=== PATIENT | male | born 1970 | race Caucasian/White ===

== ENCOUNTER 2017-10-15 18:44 | Inpatient (IN) | payer BC ==
[~2017-10-15] VITALS: Ht 182.9 cm; Wt 122.8 kg
[2017-10-15 19:43] LABS: Basophils # (auto) 0.1 uL; Basophils % (auto) 0.7 % (0.0-2.0); Eosinophils # (auto) 0 uL; Eosinophils % (auto) 0.5 % (0.0-7.0); Hematocrit 45.5 % (41.0-53.0); Hemoglobin 15.9 g/dL (13.5-17.5); Lymphocytes # (auto) 1.3 uL; Lymphocytes % (auto) 13.4 % (10.0-50.0); Mean Corpuscular Hemoglobin 32.2 pg (28.0-32.0); Mean Corpuscular Hgb Conc. 34.9 g/dL (32.0-36.0); Mean Corpuscular Volume 92.2 fL (80.0-100.0); Mean Platelet Volume 8.7 fL (6.9-10.8); Monocytes % (auto) 10.3 % (0.0-12.0); Neutrophils # (auto) 7.5 uL; Neutrophils % (auto) 75.1 % (37.0-80.0); Nucleated Red Blood Cells % 0.1 %; Platelet Count (auto) 192 10^3/uL (140-450); Red Cell Distribution Width 13.3 % (11.8-14.3); White Blood Cell 9.9 10^3/uL (4.4-10.8)
[2017-10-15 19:58] LABS: Urine Bilirubin Negative (Negative); Urine Blood Negative /uL (Negative); Urine Color Yellow (Yellow); Urine Glucose Normal (Normal); Urine Ketone TRACE (Negative); Urine Mucus FEW (None Seen); Urine Nitrite Negative (Negative); Urine RBC 1 /hpf (0 - 3); Urine Squamous Epithelial Cell FEW /hpf (<5); Urine Urobilinogen Normal (Negative); Urine pH 5.5 (5.0-8.0)
[2017-10-15 19:58] LABS: Albumin 3.8 g/dL (3.4-5.0); Magnesium 1.9 mg/dL (1.6-2.6); Potassium 3.4 mmol/L (3.5-5.1)
[2017-10-15 20:01] LABS: Total Protein 7.9 g/dL (6.4-8.2)
[2017-10-16] MEDS ORDERED: SODIUM CHLORIDE 0.9% 1,000 ML IV ONE ×3 (07:59→09:00)
[2017-10-16] MEDS ORDERED: metroNIDAZOLE 500MG/100ML 100 ML IV ONE (08:15)
[2017-10-16] MEDS ORDERED: PIPERACILLIN-TAZOB 3.375GM 50 ML IV ONE (08:15)
[2017-10-16] MEDS ORDERED: SODIUM CHLORIDE 0.9% 1,000 ML IV SCH (08:46)
[2017-10-16] MEDS ORDERED: cloNIDine HCL 0.1 MG TAB PO PRN (09:00)
[2017-10-16] MEDS ORDERED: POTASSIUM CHLORIDE 8 MEQ TAB PO ONE (09:00)
[2017-10-16] MEDS ORDERED: TEMAZEPAM 15 MG CAP PO PRN (09:00)
[2017-10-16] MEDS ORDERED: ACETAMINOPHEN 325 MG TAB PO PRN (09:00)
[2017-10-16] MEDS: HYDROcodone-ACET 5/325MG TAB PO PRN ×4 (09:31→21:19)
[2017-10-16] MEDS: MULTIPLE VITAMIN TAB PO SCH (11:05)
[2017-10-16] MEDS: FAMOTIDINE 20 MG TAB PO SCH ×2 (11:06→21:18)
[2017-10-16] MEDS: PIPERACILLIN-TAZOB 3.375GM 50 ML IV SCH ×2 (12:36→17:47)
[2017-10-16] MEDS ORDERED: METR500T PO (12:49)
[2017-10-16 13:00] VITALS: BP 182/74
[2017-10-16 13:21] VITALS: BP 182/74
[2017-10-16] MEDS: metroNIDAZOLE 500MG/100ML 100 ML IV SCH ×2 (14:20→21:18)
[2017-10-16] MEDS: SODIUM CHLORIDE 0.9% 1,000 ML IV SCH (16:12)
[2017-10-16 17:00] VITALS: BP 114/64
[2017-10-16] MEDS: ONDANSETRON HCL 4 MG/2 ML VIAL IV PRN (21:29)
[2017-10-16 22:00] VITALS: BP 107/70
[2017-10-17] MEDS: SODIUM CHLORIDE 0.9% 1,000 ML IV SCH ×3 (00:41→20:57)
[2017-10-17] MEDS: PIPERACILLIN-TAZOB 3.375GM 50 ML IV SCH ×2 (00:41→06:14)
[2017-10-17] MEDS: metroNIDAZOLE 500MG/100ML 100 ML IV SCH ×3 (04:34→20:58)
[2017-10-17] MEDS: ONDANSETRON HCL 4 MG/2 ML VIAL IV PRN ×3 (04:47→20:58)
[2017-10-17] MEDS: HYDROcodone-ACET 5/325MG TAB PO PRN ×4 (04:47→20:59)
[2017-10-17 04:53] VITALS: BP 106/59
[2017-10-17 06:11] LABS: Basophils # (auto) 0 uL; Basophils % (auto) 0.7 % (0.0-2.0); Eosinophils # (auto) 0.1 uL; Eosinophils % (auto) 1.9 % (0.0-7.0); Hematocrit 41.1 % (41.0-53.0); Hemoglobin 14.2 g/dL (13.5-17.5); Lymphocytes # (auto) 1.1 uL; Lymphocytes % (auto) 23.1 % (10.0-50.0); Mean Corpuscular Hemoglobin 32.2 pg (28.0-32.0); Mean Corpuscular Hgb Conc. 34.6 g/dL (32.0-36.0); Mean Corpuscular Volume 93.2 fL (80.0-100.0); Mean Platelet Volume 8.6 fL (6.9-10.8); Monocytes # (auto) 0.7 uL; Monocytes % (auto) 14.4 % (0.0-12.0); Neutrophils # (auto) 2.8 uL; Neutrophils % (auto) 59.9 % (37.0-80.0); Platelet Count (auto) 173 10^3/uL (140-450); Red Cell Distribution Width 13.1 % (11.8-14.3); White Blood Cell 4.7 10^3/uL (4.4-10.8)
[2017-10-17 06:36] LABS: Albumin 3.2 g/dL (3.4-5.0); BUN/Creatinine Ratio 12.1; Bilirubin, Total 0.5 mg/dL (0.2-1.0); Calcium 8.2 mg/dL (8.5-10.1); Potassium 3.4 mmol/L (3.5-5.1); Total Protein 6.4 g/dL (6.4-8.2)
[2017-10-17 09:00] VITALS: BP 114/74
[2017-10-17] MEDS: FAMOTIDINE 20 MG TAB PO SCH ×2 (11:09→20:58)
[2017-10-17] MEDS: MULTIPLE VITAMIN TAB PO SCH (11:10)
[2017-10-17] MEDS ORDERED: POTASSIUM CHL 20 Meq TABLET PO ONE (11:15)
[2017-10-17 13:07] VITALS: BP 129/44
[2017-10-17] MEDS: LEVOFLOXACIN 500MG 100 ML IV SCH (15:11)
[2017-10-17 17:00] VITALS: BP 143/91
[2017-10-17 21:44] VITALS: BP 129/68
[2017-10-18] MEDS: ONDANSETRON HCL 4 MG/2 ML VIAL IV PRN (02:20)
[2017-10-18] MEDS: HYDROcodone-ACET 5/325MG TAB PO PRN ×2 (02:20→14:18)
[2017-10-18 04:56] VITALS: BP 133/71
[2017-10-18 05:33] LABS: Basophils # (auto) 0 uL; Basophils % (auto) 0.7 % (0.0-2.0); Eosinophils # (auto) 0.1 uL; Eosinophils % (auto) 2.3 % (0.0-7.0); Hematocrit 43.1 % (41.0-53.0); Hemoglobin 14.8 g/dL (13.5-17.5); Lymphocytes # (auto) 1.2 uL; Lymphocytes % (auto) 27.9 % (10.0-50.0); Mean Corpuscular Hemoglobin 31.7 pg (28.0-32.0); Mean Corpuscular Hgb Conc. 34.2 g/dL (32.0-36.0); Mean Corpuscular Volume 92.6 fL (80.0-100.0); Mean Platelet Volume 8.9 fL (6.9-10.8); Monocytes # (auto) 0.6 uL; Monocytes % (auto) 14.8 % (0.0-12.0); Neutrophils # (auto) 2.2 uL; Neutrophils % (auto) 54.3 % (37.0-80.0); Nucleated Red Blood Cells % 0.1 %; Platelet Count (auto) 185 10^3/uL (140-450); Red Cell Distribution Width 12.8 % (11.8-14.3); White Blood Cell 4.1 10^3/uL (4.4-10.8)
[2017-10-18 05:44] LABS: Calcium 8.8 mg/dL (8.5-10.1); Potassium 3.7 mmol/L (3.5-5.1)
[2017-10-18 05:46] LABS: BUN/Creatinine Ratio 10.6
[2017-10-18] MEDS: metroNIDAZOLE 500MG/100ML 100 ML IV SCH ×2 (05:51→14:17)
[2017-10-18] MEDS: SODIUM CHLORIDE 0.9% 1,000 ML IV SCH ×2 (05:51→17:15)
[2017-10-18 09:00] VITALS: BP 128/66
[2017-10-18] MEDS: LEVOFLOXACIN 500MG 100 ML IV SCH (09:36)
[2017-10-18] MEDS: MULTIPLE VITAMIN TAB PO SCH (09:36)
[2017-10-18] MEDS: FAMOTIDINE 20 MG TAB PO SCH (09:37)
[2017-10-18 13:00] VITALS: BP 127/85
[2017-10-18] MEDS ORDERED: CIPR-173 PO (14:09)
[2017-10-18] MEDS ORDERED: METR500T PO (14:09)
[2017-10-18] MEDS ORDERED: PROM25TA5 PO (14:09)
[2017-10-18 16:25] VITALS: BP 127/85
[2017-10-18 17:00] VITALS: BP 142/96
== END 2017-10-18 20:20 | disposition home or self-care (01) | DRG 872 ==
LOC: ER 18:44 → OVERFLOW 18:45 → EAST 10-16 12:02
PROVIDERS: ADMIT Internal Medicine; ATTEND Internal Medicine
DX: A41.9 Sepsis, unspecified organism (principal); K76.0 Fatty (change of) liver, not elsewhere classified; E66.01 Morbid (severe) obesity due to excess calories; K57.32 Diverticulitis of large intestine without perforation or abscess without bleeding; E87.6 Hypokalemia; F17.200 Nicotine dependence, unspecified, uncomplicated; I12.9 Hypertensive chronic kidney disease with stage 1 through stage 4 chronic kidney disease, or unspecified chronic kidney disease; N18.2 Chronic kidney disease, stage 2 (mild); Z82.49 Family history of ischemic heart disease and other diseases of the circulatory system; Z90.49 Acquired absence of other specified parts of digestive tract; Z68.36 Body mass index [BMI] 36.0-36.9, adult
CPT/HCPCS: 36415; 71010; 74176; 80048; 80053; 81001; 83605; 83735; 85025; 87040; 87493; 96365; 96367; 96368; J1956; J2405; J2543; J3490

== ENCOUNTER 2022-10-20 13:15 | Inpatient (IN) | payer BC, OTHER ==
[~2022-10-20] VITALS: Ht 188 cm; Wt 131.0 kg
[~2022-10-20 13:15] MED LIST: CIPR-173 PO; METR500T PO; PROM25TA5 PO
[2022-10-20] MEDS ORDERED: ASPirin 81 mg TAB PO ONE (13:30)
[2022-10-20] MEDS ORDERED: cloNIDine HCL 0.1 MG TAB PO ONE (13:30)
[2022-10-20 14:07] LABS: Basophils # (auto) 0.1 10 ^3/uL (0-0.2); Basophils % (auto) 0.9 % (0.0-2.0); Eosinophils # (auto) 0.1 10 ^3/uL (0-0.8); Hematocrit 49.1 % (41.0-53.0); Hemoglobin 16.6 g/dL (13.5-17.5); Lymphocytes # (auto) 1.9 10 ^3/uL (0.4-5.4); Lymphocytes % (auto) 28.7 % (10.0-50.0); Mean Corpuscular Hemoglobin 30.6 pg (28.0-32.0); Mean Corpuscular Hgb Conc. 33.8 g/dL (32.0-36.0); Mean Corpuscular Volume 90.4 fL (80.0-100.0); Monocytes # (auto) 0.6 10 ^3/uL (0-1.3); Monocytes % (auto) 8.6 % (0.0-12.0); Neutrophils # (auto) 3.9 10 ^3/uL (1.6-8.6); Neutrophils % (auto) 59.8 % (37.0-80.0); Red Blood Cells 5.43 10^6/uL (4.5-5.90); Red Cell Distribution Width 13.1 % (11.8-14.3); White Blood Cell 6.5 10^3/uL (4.4-10.8)
[2022-10-20 14:08] LABS: BUN/Creatinine Ratio 14.4; Calcium 9.8 mg/dL (8.5-10.1); Magnesium 2.3 mg/dL (1.6-2.6); Potassium 4.3 mmol/L (3.5-5.1)
[2022-10-20 14:21] LABS: Albumin 4.3 g/dL (3.4-5.0); Bilirubin, Total 0.7 mg/dL (0.2-1.0); Total Protein 7.5 g/dL (6.4-8.2)
[2022-10-20] MEDS ORDERED: hydrALAZINE HCL 20 MG/ML VL IV PRN (18:15)
[2022-10-20] MEDS ORDERED: MORPHINE SULFATE INJ 2 MG/ml SYRG IV PRN ×2 (18:15)
[2022-10-20] MEDS ORDERED: ACETAMINOPHEN 325 MG TAB PO PRN (18:15)
[2022-10-20] MEDS ORDERED: ONDANSETRON HCL 4 MG/2 ML VIAL IV PRN (18:15)
[2022-10-20] MEDS ORDERED: LISINOPRIL 20 MG TAB PO ONE (18:15)
[2022-10-20] MEDS ORDERED: NITROGLYCERIN 0.4 MG SL TAB SL PRN (18:15)
[2022-10-20 19:35] LABS: Urine Bacteria NONE SEEN /hpf (None Seen); Urine Blood Negative /uL (Negative); Urine Hyaline Cast FEW /lpf (0 - 2); Urine Mucus FEW (None Seen); Urine WBC <1 /hpf (0 - 3)
[2022-10-20 21:05] LABS: Calcium 9.5 mg/dL (8.5-10.1); Magnesium 2.4 mg/dL (1.6-2.6); Potassium 4.1 mmol/L (3.5-5.1)
[2022-10-20 21:08] LABS: BUN/Creatinine Ratio 15.3
[2022-10-20 21:09] LABS: Amphetamine Screen, Urine NEGATIVE (NEGATIVE); Barbiturate Scree,Urine NEGATIVE (NEGATIVE); Benzodiazephine Screen, Urine NEGATIVE (NEGATIVE); Cannabinoid Screen, Urine NEGATIVE (NEGATIVE); Opiate Scree,Urine NEGATIVE (NEGATIVE); Phencyclidine Screen, Urine NEGATIVE (NEGATIVE)
[2022-10-20 21:12] LABS: Cocaine Screen, Urine NEGATIVE (NEGATIVE)
[2022-10-20] MEDS: ATORVASTATIN 20 MG TAB PO SCH (22:01)
[2022-10-21 04:12] LABS: Basophils # (auto) 0 10 ^3/uL (0-0.2); Basophils % (auto) 0.8 % (0.0-2.0); Eosinophils # (auto) 0.2 10 ^3/uL (0-0.8); Eosinophils % (auto) 2.7 % (0.0-7.0); Hematocrit 43.6 % (41.0-53.0); Hemoglobin 14.7 g/dL (13.5-17.5); Lymphocytes % (auto) 33.2 % (10.0-50.0); Mean Corpuscular Hemoglobin 30.9 pg (28.0-32.0); Mean Corpuscular Hgb Conc. 33.8 g/dL (32.0-36.0); Mean Corpuscular Volume 91.3 fL (80.0-100.0); Monocytes # (auto) 0.7 10 ^3/uL (0-1.3); Neutrophils # (auto) 3.1 10 ^3/uL (1.6-8.6); Neutrophils % (auto) 51.3 % (37.0-80.0); Nucleated Red Blood Cells % 0.1 %; Red Blood Cells 4.77 10^6/uL (4.5-5.90); White Blood Cell 6.1 10^3/uL (4.4-10.8)
[2022-10-21] MEDS: HYDROcodone-ACET 5/325MG TAB PO PRN ×3 (09:07→21:46)
[2022-10-21] MEDS: ASPirin 81 mg TAB PO SCH (10:42)
[2022-10-21] MEDS: LISINOPRIL 20 MG TAB PO SCH (10:42)
[2022-10-21] MEDS ORDERED: ADENOSINE 110 MG in GIVE UN-DILUTED 0 ML IV STA (11:07)
[2022-10-21 11:12] VITALS: BP 137/76
[2022-10-21 20:00] VITALS: BP 122/79
[2022-10-21] MEDS: ATORVASTATIN 20 MG TAB PO SCH (21:45)
[2022-10-21 22:00] VITALS: BP 132/78
[2022-10-22] VITALS (9 sets, daily range): BP systolic 110–166; BP diastolic 58–82
[2022-10-22] MEDS: ASPirin 81 mg TAB PO SCH (10:16)
[2022-10-22] MEDS: LISINOPRIL 20 MG TAB PO SCH (10:16)
[2022-10-22 10:24] LABS: Basophils # (auto) 0.1 10 ^3/uL (0-0.2); Eosinophils # (auto) 0.1 10 ^3/uL (0-0.8); Eosinophils % (auto) 2.3 % (0.0-7.0); Hematocrit 47.5 % (41.0-53.0); Lymphocytes # (auto) 1.4 10 ^3/uL (0.4-5.4); Lymphocytes % (auto) 24.3 % (10.0-50.0); Mean Corpuscular Hemoglobin 30.8 pg (28.0-32.0); Mean Corpuscular Hgb Conc. 33.6 g/dL (32.0-36.0); Mean Corpuscular Volume 91.5 fL (80.0-100.0); Monocytes # (auto) 0.4 10 ^3/uL (0-1.3); Monocytes % (auto) 7.3 % (0.0-12.0); Neutrophils # (auto) 3.9 10 ^3/uL (1.6-8.6); Neutrophils % (auto) 65.1 % (37.0-80.0); Nucleated Red Blood Cells % 0.1 %; Red Blood Cells 5.19 10^6/uL (4.5-5.90); White Blood Cell 5.9 10^3/uL (4.4-10.8)
[2022-10-22 10:37] LABS: INR 0.99 (0.9-1.15); Partial Thromboplastin Time 28.5 sec (24.6-33.4)
[2022-10-22 10:56] LABS: Calcium 9.4 mg/dL (8.5-10.1); Potassium 4.7 mmol/L (3.5-5.1)
[2022-10-22] MEDS ORDERED: IODIXANOL 320MG/ML 100ML BTL IV ONE (12:18)
[2022-10-22] MEDS ORDERED: LIDOCAINE 2%HCL (LOCAL ANESTH.) INJ 20ML MDV ONE (12:18)
[2022-10-22] MEDS ORDERED: ANGIOMAX 250 MG VIAL IV ONE (12:22)
[2022-10-22] MEDS ORDERED: VERAPAMIL 2.5MG/ML INJ 2ML VIAL IV ONE (12:22)
[2022-10-22] MEDS ORDERED: HEPARIN SODIUM (PORCINE) 5000 UNITS/ML 1ML VIAL ONE (12:22)
[2022-10-22] MEDS ORDERED: fentaNYL CITRATE 100 MCG/2 ML VL ONE (12:23)
[2022-10-22] MEDS ORDERED: MIDAZOLAM HCL 2MG/2ML 2ml VIAL (1mg/ml) ONE (12:23)
[2022-10-22] MEDS ORDERED: SODIUM CHL 0.9% 0 ML ONE (12:23)
[2022-10-22] MEDS: HYDROcodone-ACET 5/325MG TAB PO PRN (15:15)
[2022-10-22] MEDS ORDERED: ATOR40TA52 PO (15:50)
[2022-10-22] MEDS ORDERED: ASPI-325 PO (15:50)
[2022-10-22] MEDS ORDERED: LISI20TA28 PO (15:50)
[2022-10-22] MEDS ORDERED: LANC-347 XX (15:50)
[2022-10-22] MEDS ORDERED: BLOO1KIT60 XX (15:50)
[2022-10-22] MEDS ORDERED: BLOO-156 XX (15:50)
[2022-10-22] MEDS ORDERED: ERGO1CAP23 PO (15:50)
[2022-10-22] MEDS ORDERED: EMPA1TAB3 PO (15:50)
== END 2022-10-22 19:01 | disposition home or self-care (01) | DRG 287 ==
LOC: ER 13:15 → TELE 18:08 → TELE-E-ADS 10-21 15:36 → TELE-WESTW 10-21 17:37
PROVIDERS: ADMIT Registered Nurse; ATTEND Internal Medicine
PROC: 4A023N7 Measurement of Cardiac Sampling and Pressure, Left Heart, Percutaneous Approach (ICD-10-PCS; principal; 2022-10-22)
PROC: B211YZZ Fluoroscopy of Multiple Coronary Arteries using Other Contrast (ICD-10-PCS; 2022-10-22)
PROC: B215YZZ Fluoroscopy of Left Heart using Other Contrast (ICD-10-PCS; 2022-10-22)
DX: R07.9 Chest pain, unspecified (principal); I16.0 Hypertensive urgency; E66.01 Morbid (severe) obesity due to excess calories; Z68.37 Body mass index [BMI] 37.0-37.9, adult; E11.9 Type 2 diabetes mellitus without complications; E55.9 Vitamin D deficiency, unspecified; K76.0 Fatty (change of) liver, not elsewhere classified; Z20.822 Contact with and (suspected) exposure to COVID-19; R74.01 Elevation of levels of liver transaminase levels; E78.5 Hyperlipidemia, unspecified; I10 Essential (primary) hypertension; Z82.49 Family history of ischemic heart disease and other diseases of the circulatory system; Z71.3 Dietary counseling and surveillance; Z90.49 Acquired absence of other specified parts of digestive tract
CPT/HCPCS: 36415; 70450; 71046; 78452; 80048; 80053; 80061; 80307; 81001; 82306; 83036; 83735; 83880; 84443; 84484; 85025; 85379; 85610; 85730; 87426; 93005; 93017; 93306; 99152; G0378; J0153; J2250; J2405; Q9967